=== PATIENT | male | born 1980 | race Caucasian/White ===

== ENCOUNTER 2017-07-14 21:34 | Emergency (ER) | payer BC ==
[2017-07-14] MEDS ORDERED: Sodium Chloride 0.9% 10 ML Syringe FLUSH PRN (22:27)
[2017-07-14] MEDS ORDERED: Nitroglycerin 0.4 MG Tab.SL SL PRN (22:29)
[2017-07-15] MEDS ORDERED: Aspirin 81 MG Tab.Chew PO ONE (01:30)
--- NOTE | 2017-07-15 01:30 | EDM.PDOC ---
ED HPI GENERAL MEDICAL PROBLEM - General Chief Complaint: Chest Pain Stated Complaint: CHEST PAINS Time Seen by Provider: 07/14/17 22:00 Source of Information: Reports: Patient History Limitations: Reports: No Limitations - History of Present Illness INITIAL COMMENTS - FREE TEXT/NARRATIVE: This patient comes in complaining of a vague annoying substernal chest pain. It' s been off and on for months but seemed worse this afternoon. He describes it as a 2-3 out of 10 pain. At worst it was 4-5. Nothing seems to make it worse. He thinks maybe it's better with rest. He said sometimes he feels a little bit short of breath and must sit up in bed to breathe. He's never seen a investigator never used inhalers or anything. There is some history of exercise -induced asthma as a child. He denies any kind of pulmonary edema. He said he's been playing football lately but that doesn't seem to bother the chest pain. chest discomfort Pain Score (Numeric/FACES): 0 - Related Data Allergies Allergy/AdvReac Type Severity Reaction Status Date / Time No Known Allergies Allergy Verified 07/14/17 21:48 Home Meds: Home Meds Cetirizine HCl [Zyrtec] 10 mg PO ASDIRECTED PRN 04/04/16 [History] Acetaminophen/Caffeine [Excedrin Tension Headache] 1 tab PO ASDIRECTED PRN 07/14 [History] Past Medical History HEENT History: Reports: Allergic Rhinitis Cardiovascular History: Reports: Hypertension Respiratory History: Reports: Asthma Gastrointestinal History: Reports: None Genitourinary History: Reports: None Musculoskeletal History: Reports: Fracture, Gout Other Musculoskeletal History: Right carpal tunnel Neurological History: Reports: Migraines Psychiatric History: Reports: None Endocrine/Metabolic History: Reports: Obesity/BMI 30+ Hematologic History: Reports: None Immunologic History: Reports: None Oncologic (Cancer) History: Reports: None Dermatologic History: Reports: None - Infectious Disease History Infectious Disease History: Reports: Chicken Pox - Past Surgical History Head Surgeries/Procedures: Reports: None HEENT Surgical History: Reports: Oral Surgery Cardiovascular Surgical History: Reports: None Respiratory Surgical History: Reports: None GI Surgical History: Reports: Colonoscopy Musculoskeletal Surgical History: Reports: Carpal Tunnel Oncologic Surgical History: Reports: None Dermatological Surgical History: Reports: None Social & Family History - Tobacco Use Smoking Status *Q: Never Smoker Second Hand Smoke Exposure: No - Caffeine Use Caffeine Use: Reports: Soda - Alcohol Use Days Per Week of Alcohol Use: 0 - Recreational Drug Use Recreational Drug Use: No ED ROS GENERAL - Review of Systems Review Of Systems: ROS reveals no pertinent complaints other than HPI. ED EXAM, GENERAL - Physical Exam Exam: See Below Exam Limited By: No Limitations General Appearance: Alert, WD/WN, No Apparent Distress Eye Exam: Bilateral Eye: Normal Inspection Throat/Mouth: Normal Inspection Head: Atraumatic Neck: Normal Inspection Respiratory/Chest: Lungs Clear Cardiovascular: Normal Peripheral Pulses, Regular Rate, Rhythm, No Murmur Peripheral Pulses: 2+: Radial (L), Radial (R), Posterior Tibial (L), Posterior Tibial (R) GI/Abdominal: Normal Bowel Sounds, Soft, Non-Tender Back Exam: Normal Inspection Extremities: Normal Inspection, No Pedal Edema Neurological: Alert, Oriented, No Motor/Sensory Deficits Psychiatric: Normal Affect, Normal Mood Skin Exam: Warm, Dry, Intact Course - Vital Signs Last Recorded V/S: Last Vital Signs Temp 35.8 C 07/15/17 01:48 Pulse 69 07/15/17 01:48 Resp 16 07/15/17 01:48 BP 149/93 H 07/15/17 01:48 Pulse Ox 93 L 07/15/17 01:48 - Orders/Labs/Meds Orders: Active Orders 24 hr Category Date Time Status EKG Documentation Completion [RC] ASDIRECTED Care 07/14/17 22:28 Active EKG Documentation Completion [RC] ASDIRECTED Care 07/14/17 22:55 Active Chest 1V Frontal [CR] Urgent Exams 07/14/17 22:27 Taken Sodium Chloride 0.9% [Saline Flush] Med 07/14/17 22:27 Active 10 ml FLUSH ASDIRECTED PRN Saline Lock Insert [OM.PC] Urgent Oth 07/14/17 22:27 Ordered EKG 12 Lead [EK] Urgent Ther 07/14/17 22:27 Ordered EKG 12 Lead [EK] Urgent Ther 07/14/17 22:55 Ordered Medication Orders Sodium Chloride (Saline Flush) 10 ml FLUSH ASDIRECTED PRN PRN Reason: Keep Vein Open Last Admin: 07/14/17 22:51 Dose: 10 ml Labs: Laboratory Tests 07/14/17 07/14/17 07/15/17 Range/Units 22:41 22:41 00:41 WBC 6.2 (4.5-11.0) K/uL RBC 5.46 (4.30-5.90) M/uL Hgb 15.7 H (12.0-15.0) g/dL Hct 44.9 (40.0-54.0) % MCV 82 (80-98) fL MCH 29 (27-31) pg MCHC 35 (32-36) % Plt Count 211 (150-400) K/uL Neut % (Auto) 40 (36-66) % Lymph % (Auto) 46 H (24-44) % [place] % (Auto) 9 H (2-6) % Eos % (Auto) 4 (2-4) % Baso % (Auto) 1 (0-1) % Sodium 140 (140-148) mmol/L Potassium 3.6 (3.6-5.2) mmol/L Chloride 104 (100-108) mmol/L Carbon Dioxide 29 (21-32) mmol/L Anion Gap 7.1 (5.0-14.0) mmol/L BUN 17 (7-18) mg/dL Creatinine 1.2 (0.8-1.3) mg/dL Est Cr Clr Drug Dosing 94.33 mL/min Estimated GFR (MDRD) > 60 (>60) Glucose 119 H (74-106) mg/dL Calcium 8.3 L (8.5-10.1) mg/dL Total Bilirubin 0.5 (0.2-1.0) mg/dL AST 26 (15-37) U/L ALT 54 (12-78) U/L Alkaline Phosphatase 63 (46-116) U/L Troponin I < 0.017 < 0.017 (0.000-0.056) ng/mL Orx-H-Uwnaxtkfgjo Pept 12 (5-125) pg/mL Total Protein 6.9 (6.4-8.2) g/dL Albumin 3.5 (3.4-5.0) g/dL Globulin 3.4 (2.3-3.5) g/dL Albumin/Globulin Ratio 1.0 L (1.2-2.2) Meds: Medications Generic Name Dose Route Start Last Admin Trade Name Freq PRN Reason Stop Dose Admin Sodium Chloride 10 ml 08/21/17 22:27 07/14/17 22:51 Saline Flush FLUSH 10 ml ASDIRECTED PRN Administration Keep Vein Open Discontinued Medications Generic Name Dose Route Start Last Admin Trade Name Shin PRN Reason Stop Dose Admin Aspirin 324 mg 07/15/17 01:30 07/15/17 01:42 Aspirin PO 07/15/17 01:31 324 mg ONETIME ONE Administration Nitroglycerin 0.4 mg 07/14/17 22:29 07/14/17 22:44 Nitrostat SL 07/14/17 22:40 0.4 mg Q5M PRN Administration Chest Pain - Re-Assessments/Exams Free Text/Narrative Re-Assessment/Exam: 07/15/17 01:28 Initial EKG shows a normal sinus rhythm at 64 bpm there is a right bundle branch block. There are insignificant Q waves in [address] or T waves. The patient was given some one sublingual nitroglycerin which rapidly relieved his pain. Repeat EKG shows a sinus rhythm at 76 bpm incomplete right bundle branch block. There seems to be a larger Q-wave in lead [address] or T changes. I do not see any evidence of a lateral infarct. 07/15/17 02:00 2 hour troponin is negative. Patient remains pain-free. He received aspirin 324 mg by mouth 07/15/17 02:01 Departure - Departure Time of Disposition: 02:01 Disposition: Home, Self-Care 01 Condition: Fair Clinical Impression: Chest pain Forms: ED Department Discharge Additional Instructions: Take one regular aspirin daily. You will be contacted within the next one or 2 days regarding a stress test. You should follow-up with Dr. Crespo afterwards. Return to the ER at any time if the pain returns. - My Orders Last 24 Hours: My Active Orders 07/14/17 22:27 Chest 1V Frontal [CR] Urgent Sodium Chloride 0.9% [Saline Flush] 10 ml FLUSH ASDIRECTED PRN Saline Lock Insert [OM.PC] Urgent EKG 12 Lead [EK] Urgent 07/14/17 22:28 EKG Documentation Completion [RC] ASDIRECTED 07/14/17 22:55 EKG Documentation Completion [RC] ASDIRECTED EKG 12 Lead [EK] Urgent - Assessment/Plan Last 24 Hours: My Active Orders 07/14/17 22:27 Chest 1V Frontal [CR] Urgent Sodium Chloride 0.9% [Saline Flush] 10 ml FLUSH ASDIRECTED PRN Saline Lock Insert [OM.PC] Urgent EKG 12 Lead [EK] Urgent 07/14/17 22:28 EKG Documentation Completion [RC] ASDIRECTED 07/14/17 22:55 EKG Documentation Completion [RC] ASDIRECTED EKG 12 Lead [EK] Urgent
[2017-07-15 01:49] VITALS: BP 149/93
--- NOTE | 2017-07-15 09:45 | CR ---
Chest 1V Frontal INDICATION: pain FINDINGS: Negative AP portable chest x-ray.
== END 2017-07-15 02:11 | disposition home or self-care (01) ==
LOC: JP.ED 21:34
DX: R07.9 Chest pain, unspecified (principal); I10 Essential (primary) hypertension; J45.909 Unspecified asthma, uncomplicated; E66.9 Obesity, unspecified; Z68.33 Body mass index [BMI] 33.0-33.9, adult; Z98.890 Other specified postprocedural states
CPT/HCPCS: 36415; 71010; 80053; 83880; 84484; 85025; 93005; 99285; A9270; J7050

== ENCOUNTER 2024-03-11 06:29 | Day surgery (SDC) | payer BC, OTHER ==
[2024-03-11] MEDS: Sodium Chloride 0.9% 1,000 ML IV SCH (07:01)
[2024-03-11] MEDS ORDERED: fentaNYL 100 MCG/2 ML SDV ONE (07:31)
[2024-03-11] MEDS ORDERED: Midazolam 1 MG/ML 2 ML SDV ONE (07:31)
[2024-03-11] MEDS ORDERED: Propofol 200 MG/20 ML SDV ONE (07:31)
[2024-03-11 09:12] VITALS: BP 135/98; PULSE 67
== END 2024-03-11 09:05 | disposition home or self-care (01) ==
LOC: JP.SDS 06:29
PROVIDERS: ATTEND Surgery
DX: Z12.11 Encounter for screening for malignant neoplasm of colon (principal); I10 Essential (primary) hypertension; G47.33 Obstructive sleep apnea (adult) (pediatric); Z79.899 Other long term (current) drug therapy
CPT/HCPCS: 45378; J2250; J2704; J3010; J7030